=== PATIENT | male | born 1980 | race American Indian/Alaskan Native ===

== ENCOUNTER 2017-02-08 18:09 | Emergency (ER) | payer BC ==
[~2017-02-08] VITALS: Ht 170.2 cm; Wt 109.9 kg
[2017-02-08 18:10] VITALS: BP 175/96
[2017-02-08] MEDS ORDERED: MOBIC15 MG PO (18:20)
[2017-02-08] MEDS ORDERED: CYCLOBENZAPRINE5 MG PO (18:20)
== END 2017-02-08 19:20 | disposition home or self-care (01) ==
LOC: ER 18:09
DX: S16.1XXA Strain of muscle, fascia and tendon at neck level, initial encounter (principal); S39.012A Strain of muscle, fascia and tendon of lower back, initial encounter; V43.92XA Unspecified car occupant injured in collision with other type car in traffic accident, initial encounter; Y93.I9 Activity, other involving external motion; Y92.410 Unspecified street and highway as the place of occurrence of the external cause; Y99.9 Unspecified external cause status; Z88.0 Allergy status to penicillin